=== PATIENT | female | born 1935 | race Caucasian/White ===

== ENCOUNTER 2017-07-20 16:17 | Emergency (ER) | payer OTHER ==
[~2017-07-20] VITALS: Ht 175.3 cm; Wt 59.0 kg
[2017-07-20 16:42] VITALS: BP_SYST 139
--- NOTE | 2017-07-20 18:43 | NUR ---
Placed in room 02 . Placed on [employer], blood pressure machine and pulse oximeter. To gown for exam. Side rails up.
--- NOTE | 2017-07-20 19:10 | NUR ---
Pt has cough and flu like symptoms. Will continue to monitor. No distress noted.
--- NOTE | 2017-07-20 19:45 | NUR ---
ER Dr. Elizondo at bedside examining patient.
[2017-07-20 20:28] VITALS: BP_SYST 159
--- NOTE | 2017-07-20 20:28 | NUR ---
Patient given written and verbal discharge instructions and verbalizes understanding. ER MD discussed with patient the results and treatment provided. Patient in stable condition. ID arm band removed. Rx of Azithromycin and Tessalon Perles given. Patient educated on pain management and to follow up with PMD. Pain Scale 0/10. Opportunity for questions provided and answered.
== END 2017-07-20 20:28 | disposition home or self-care (01) ==
LOC: SED 16:17
DX: J06.9 Acute upper respiratory infection, unspecified (principal)
CPT/HCPCS: 36415; 86710; 99284